=== PATIENT | female | born 1970 | race Caucasian/White ===

== ENCOUNTER → 2021-10-08 15:31 | Outpatient (BNVA) | payer MEDICAID, SELFPAY | PROVIDERS: Visit Provider Nurse Practitioner Family | DX: I87.2 Venous insufficiency (chronic) (peripheral) (principal); L97.322 Non-pressure chronic ulcer of left ankle with fat layer exposed; I96 Gangrene, not elsewhere classified | CPT/HCPCS: 29581 ==

== ENCOUNTER → 2021-10-15 14:27 | Outpatient (BNVA) | payer MEDICAID, SELFPAY | PROVIDERS: Visit Provider Nurse Practitioner Family | DX: I87.2 Venous insufficiency (chronic) (peripheral) (principal); L97.322 Non-pressure chronic ulcer of left ankle with fat layer exposed; I96 Gangrene, not elsewhere classified | CPT/HCPCS: 11042 ==

== ENCOUNTER → 2021-10-23 14:20 | Outpatient (BNVA) | payer MEDICAID, SELFPAY | PROVIDERS: Visit Provider Surgery | DX: I87.2 Venous insufficiency (chronic) (peripheral) (principal); L97.322 Non-pressure chronic ulcer of left ankle with fat layer exposed | CPT/HCPCS: 11042 ==

== ENCOUNTER → 2021-10-27 14:56 | Outpatient (BNVA) | payer MEDICAID, SELFPAY | PROVIDERS: Visit Provider Emergency Medicine | DX: I87.2 Venous insufficiency (chronic) (peripheral) (principal); L97.321 Non-pressure chronic ulcer of left ankle limited to breakdown of skin; L97.311 Non-pressure chronic ulcer of right ankle limited to breakdown of skin; S90.521D Blister (nonthermal), right ankle, subsequent encounter; X58.XXXD Exposure to other specified factors, subsequent encounter | CPT/HCPCS: 11042 ==

== ENCOUNTER → 2021-10-29 13:00 | Outpatient (BNVA) | payer MEDICAID, SELFPAY | PROVIDERS: Visit Provider Emergency Medicine | DX: I87.2 Venous insufficiency (chronic) (peripheral) (principal); L97.322 Non-pressure chronic ulcer of left ankle with fat layer exposed; I96 Gangrene, not elsewhere classified | CPT/HCPCS: 11042 ==

== ENCOUNTER → 2021-11-05 09:57 | Outpatient (BNVA) | payer MEDICAID, SELFPAY | PROVIDERS: Visit Provider Nurse Practitioner Family | DX: I87.2 Venous insufficiency (chronic) (peripheral) (principal); L97.321 Non-pressure chronic ulcer of left ankle limited to breakdown of skin | CPT/HCPCS: 11042 ==

== ENCOUNTER → 2021-11-09 15:46 | Outpatient (BNVA) | payer MEDICAID, SELFPAY | PROVIDERS: Visit Provider Thoracic Surgery (Cardiothoracic Vascular Surgery) | DX: L97.822 Non-pressure chronic ulcer of other part of left lower leg with fat layer exposed (principal); I87.2 Venous insufficiency (chronic) (peripheral) | CPT/HCPCS: 29581 ==

== ENCOUNTER → 2021-11-12 09:58 | Outpatient (BNVA) | payer MEDICAID, SELFPAY | PROVIDERS: Visit Provider Nurse Practitioner Family | DX: I96 Gangrene, not elsewhere classified (principal); I87.2 Venous insufficiency (chronic) (peripheral); L97.322 Non-pressure chronic ulcer of left ankle with fat layer exposed | CPT/HCPCS: 11042 ==

== ENCOUNTER → 2021-11-26 10:24 | Outpatient (BNVA) | payer BC, SELFPAY | PROVIDERS: Visit Provider Nurse Practitioner Family | DX: Z01.89 Encounter for other specified special examinations (principal) | CPT/HCPCS: 87070; 87077; 87176; 87186; 87205 ==

== ENCOUNTER → 2021-11-30 14:52 | Outpatient (BNVA) | payer BC, SELFPAY | PROVIDERS: Visit Provider Thoracic Surgery (Cardiothoracic Vascular Surgery) | DX: I87.2 Venous insufficiency (chronic) (peripheral) (principal); L97.822 Non-pressure chronic ulcer of other part of left lower leg with fat layer exposed | CPT/HCPCS: 29581; A6251; A6252 ==

== ENCOUNTER → 2021-12-03 10:10 | Outpatient (BNVA) | payer BC, SELFPAY | PROVIDERS: Visit Provider Nurse Practitioner Family | DX: I87.2 Venous insufficiency (chronic) (peripheral) (principal); L97.322 Non-pressure chronic ulcer of left ankle with fat layer exposed; I96 Gangrene, not elsewhere classified | CPT/HCPCS: 11042; A6252 ==

== ENCOUNTER → 2021-12-07 14:11 | Outpatient (BNVA) | payer BC, SELFPAY | PROVIDERS: Visit Provider Thoracic Surgery (Cardiothoracic Vascular Surgery) | DX: I87.2 Venous insufficiency (chronic) (peripheral) (principal); L97.822 Non-pressure chronic ulcer of other part of left lower leg with fat layer exposed | CPT/HCPCS: 29581; A6212; A6252 ==

== ENCOUNTER → 2021-12-10 10:29 | Outpatient (BNVA) | payer BC, SELFPAY | PROVIDERS: Visit Provider Nurse Practitioner Family | DX: I87.2 Venous insufficiency (chronic) (peripheral) (principal); L97.322 Non-pressure chronic ulcer of left ankle with fat layer exposed | CPT/HCPCS: 11042; A6252 ==

== ENCOUNTER → 2021-12-14 14:15 | Outpatient (BNVA) | payer BC, SELFPAY | PROVIDERS: Visit Provider Thoracic Surgery (Cardiothoracic Vascular Surgery) | DX: I87.2 Venous insufficiency (chronic) (peripheral) (principal); L97.822 Non-pressure chronic ulcer of other part of left lower leg with fat layer exposed | CPT/HCPCS: 29581; 99212; A6252 ==

== ENCOUNTER → 2021-12-17 13:02 | Outpatient (BNVA) | payer BC, SELFPAY | PROVIDERS: Visit Provider Nurse Practitioner Family | DX: I87.2 Venous insufficiency (chronic) (peripheral) (principal); L97.322 Non-pressure chronic ulcer of left ankle with fat layer exposed; I96 Gangrene, not elsewhere classified | CPT/HCPCS: 11042; A6252 ==

== ENCOUNTER → 2021-12-21 15:05 | Outpatient (BNVA) | payer BC, SELFPAY | PROVIDERS: Visit Provider Thoracic Surgery (Cardiothoracic Vascular Surgery) | DX: I87.2 Venous insufficiency (chronic) (peripheral) (principal); L97.822 Non-pressure chronic ulcer of other part of left lower leg with fat layer exposed | CPT/HCPCS: 29581; A6252 ==

== ENCOUNTER 2022-01-05 12:45 | Outpatient (CLI) | payer BC, MEDICAID, SELFPAY ==
--- NOTE | 2022-01-05 12:30 | USCV_ITS ---
Peggy Dela Cruz Age: 51 Gender: F : 1970 Exam Date: 01/05/2022 13:16 Ordering Phys: Mini Lay Technologist: Suleman Manjarrez Exam Location: [facility] [place] Indication: HISTORY: PROCEDURES: Left duplex Venous Insufficiency study of the Deep and Superficial systems was carried out according to normal protocol with the patient in supine positon for deep system and dependent position for the superficial system. FINDINGS: All deep veins demonstrated compressibility without evidence of intraluminal thrombus or increased echogenicity. The left gsaph has been previously sugicaly removed. There is also significant reflux in the remenant great saph from the sfj to the mid level. CONCLUSIONS The venous duplex examination was performed on the left side 1. No significant or deep vein thrombosis were noted. No significant reflux in the deep veins. 2. There seems to be an accessory greater saphenous vein with significant reflux at the saphenofemoral junction, distal to the saphenofemoral junction, proximal and mid greater saphenous vein segments. These venous segments were found to be greater than 1 cm deep from the surface. They were measuring anywhere from 0.44 to 0.86 cm in diameter. 3. No significant reflux were noted in the small saphenous vein segments. Dr Brent Thomas MD [facility] (Electronically Signed) Final Date: 11 January 2022 09:59 S
== END 2022-01-05 12:46 | disposition home or self-care (01) ==
LOC: RAD 12:46
PROVIDERS: Visit Provider Nurse Practitioner Family
DX: I87.2 Venous insufficiency (chronic) (peripheral) (principal); L97.322 Non-pressure chronic ulcer of left ankle with fat layer exposed
CPT/HCPCS: 93971

== ENCOUNTER → 2022-07-27 14:49 | Outpatient (BNVA) | payer BC, MEDICAID, SELFPAY | PROVIDERS: Visit Provider Nurse Practitioner Family | DX: I87.2 Venous insufficiency (chronic) (peripheral) (principal); L97.322 Non-pressure chronic ulcer of left ankle with fat layer exposed; L89.892 Pressure ulcer of other site, stage 2 | CPT/HCPCS: 87070; 87176; 87205 ==

== ENCOUNTER → 2022-12-16 11:22 | Outpatient (BNVA) | payer BC, MEDICAID, SELFPAY | PROVIDERS: Visit Provider Nurse Practitioner Family | DX: L98.9 Disorder of the skin and subcutaneous tissue, unspecified (principal) | CPT/HCPCS: 87070; 87075; 87077; 87186; 87205 ==

== ENCOUNTER 2023-01-06 12:48 | Outpatient (CLI) | payer BC, MEDICAID, SELFPAY ==
--- NOTE | 2023-01-06 13:15 | USCV_ITS ---
Peggy Dela Cruz Age: 52 Gender: F : 1970 Exam Date: 01/06/2023 13:02 Ordering Phys: Lizette Dutton NP Technologist: GERARDO Exam Location: [facility] – [place] Indication: LE Swelling HISTORY: Lower extremity swelling. PROCEDURES: Venous duplex imaging was performed in only the left lower extremity. The following venous structures were evaluated: common femoral vein, profunda vein, proximal portion of the greater saphenous vein, superficial femoral vein, and the popliteal vein. In addition, the posterior tibial and peroneal trunk were evaluated. Serial compression, augmentation maneuvers, and spectral Doppler flow evaluation were performed. FINDINGS: Normal 2-D Doppler and augmentation and compressibility throughout the lower extremity venous structures. Additional imaging through the proximal calf veins also reveals no thrombus. Limited evaluation of the greater saphenous vein is patent with no thrombus. CONCLUSIONS No DVT left lower extremity. Dr. Blanca Jason DO (Electronically Signed) Final Date: 06 January 2023 13:52 S
== END 2023-01-06 12:49 | disposition home or self-care (01) ==
PROVIDERS: Visit Provider Nurse Practitioner Family
DX: M79.605 Pain in left leg (principal); M79.89 Other specified soft tissue disorders
CPT/HCPCS: 93971

== ENCOUNTER 2023-02-08 13:33 | Outpatient (CLI) | payer BC, MEDICAID, SELFPAY ==
--- NOTE | 2023-02-08 13:30 | USCV_ITS ---
Peggy Dela Cruz Age: 52 Gender: F : 1970 Exam Date: 02/08/2023 13:53 Ordering Phys: Lizette Dutton NP Technologist: Exam Location: [facility] – [place] Indication: HISTORY: PROCEDURES: Bilateral duplex Venous Insufficiency study of the Deep and Superficial systems was carried out according to normal protocol with the patient in supine positon for deep system and dependent position for the superficial system. FINDINGS: All deep veins demonstrated compressibility without evidence of intraluminal thrombus or increased echogenicity. Spectral analysis of Doppler signals demonstrates normal response to compression maneuvers indicating patency without obstruction. Reflux determinations were made with the patient in the dependent position, the weight being on the contralateral leg. There is multi level reflux on the leg in the deep and superfical veins. The lt leg has had most of the lt great saph removed exept for extream proximal area there is and enlarged lymph node in the lt groin, measuring 3.62 cm The reflux time in the right femoral vein and the popliteal veins 2.02 and 1.5 cm respectively. On the left side, the popliteal vein reflux time was 1.4 seconds. The right greater saphenous vein was found to have significant reflux at the saphenofemoral junction, distal to the saphenofemoral junction, proximal and mid greater saphenous vein segments. The venous segments were measuring 0.89, 0.79, 0.68 and 0.59 cm respectively at these levels. The decimal surface where 2.17, 1.69, 1.34, and 0.86 cm respectively from the surface. On the left side, Significant venous reflux was noted at the saphenofemoral junction. The greater saphenous vein was found to be removed for. No significant venous reflux were noted in the small saphenous veins bilaterally CONCLUSIONS 1. No evidence of DVT on either side 2. Significant deep vein reflux involving the femoral and popliteal vein on the right side and popliteal vein on the left side 3. Significant venous reflux of greater than 500 ms were noted at the saphenofemoral junction, distal to the saphenofemoral , Proximal and mid segment of the greater saphenous veins. These segments were greater than 1 cm deep from the surface except the mid greater saphenous vein. The venous dimensions and the reflux times are as mentioned above. 4. Significant venous reflux was noted to the saphenofemoral junction on the left side. The greater saphenous vein was found to be removed. 5. No significant venous reflux is noted in the mall saphenous veins on either side Dr Brent Thomas MD [facility] (Electronically Signed) Final Date: 08 February 2023 17:21 S
== END 2023-02-08 13:34 | disposition home or self-care (01) ==
PROVIDERS: PCP Nurse Practitioner Family; Visit Provider Nurse Practitioner Family
DX: S81.802A Unspecified open wound, left lower leg, initial encounter (principal); X58.XXXA Exposure to other specified factors, initial encounter; I87.2 Venous insufficiency (chronic) (peripheral)
CPT/HCPCS: 93970

== ENCOUNTER 2023-02-10 14:42 | Outpatient (CLI) | payer BC, MEDICAID, SELFPAY ==
--- NOTE | 2023-02-10 14:30 | USR_ITS ---
PROCEDURE INFORMATION: Exam: US Duplex Bilateral Lower Extremity Arteries Exam date and time: 02/10/2023 2:54 PM Age: 52 years old Clinical indication: Other: Nonhealing sores; Additional info: S81.046z - unspecified open wound, left lower leg, initia. . . TECHNIQUE: Imaging protocol: Real-time ultrasound scan of the arteries of the bilateral lower extremities with 2-D rodriguez scale, color Doppler flow and spectral waveform analysis. Images documented and saved. COMPARISON: No relevant prior studies available. FINDINGS: Right iliac/common femoral artery: No occlusion or significant stenosis. Normal waveform. Right superficial femoral artery: No occlusion or significant stenosis. Normal waveform. Right popliteal artery: No occlusion or significant stenosis. Normal waveform. Right calf/foot arteries: No occlusion or significant stenosis in the visualized arteries. Normal waveforms. Dorsalis pedis artery is patent. Left iliac/common femoral artery: No occlusion or significant stenosis. Normal waveform. Left superficial femoral artery: No occlusion or significant stenosis. Normal waveform. Left popliteal artery: No occlusion or significant stenosis. Normal waveform. Left calf/foot arteries: No occlusion or significant stenosis in the visualized arteries. Normal waveforms. Dorsalis pedis artery is patent. PEYMAN is 1.1 on the right and 1 on the left. US/[place] [id number] IMPRESSION: No stenosis or occlusion.
== END 2023-02-10 14:43 | disposition home or self-care (01) ==
PROVIDERS: PCP Nurse Practitioner Family; Visit Provider Nurse Practitioner Family
DX: S81.802A Unspecified open wound, left lower leg, initial encounter (principal); X58.XXXA Exposure to other specified factors, initial encounter
CPT/HCPCS: 93925

== ENCOUNTER 2024-01-18 12:00 | Outpatient (CLI) | payer BC, MEDICAID, SELFPAY ==
--- NOTE | 2024-01-18 12:00 | USCV_ITS ---
Peggy Dela Cruz Age: 53 Gender: F : 1970 Exam Date: 01/18/2024 12:26 Ordering Phys: Ousmane Mckeon MD (Andy) ([email or web address]) Technologist: CT [place] [facility] [place]: HISTORY: PROCEDURES: FINDINGS: The deep and the superficial veins are found to be easily compressible. On the right side, the femoral vein and the popliteal venous segments were found to have significant insufficiency with the reflux time of 2.34 and 1.92 respectively. On the left side also there was significant reflux in the femoral and popliteal veins with reflux time of 2.11 and 2.52 seconds respectively. Significant reflux were noted at the level of the mid, distal and below-knee segments of the greater saphenous vein on the right side and distal greater saphenous vein segment of the left side. The reflux time where 1.5, 1.7 and 3.0 seconds, respectively on the right and 1.5 seconds on the left. All these venous segments were found to be very superficial except at the mid segment of the greater saphenous vein on the right side which was at a depth of 1.3 cm. These venous segments were measuring anywhere from 0.4 to 0.6 cm on the right side and 0.3 cm on the left side CONCLUSIONS 1. No evidence of DVT in the above-mentioned identifiable weight 2. Significant venous reflux were noted in the deep veins bilaterally 3. Significant venous reflux of greater than 500 ms were noted on the right side at the level of the mid, distal and below-knee segments of the greater saphenous vein. But except the mid greater saphenous vein, all other venous segments were very superficial. 4. Significant venous reflux of greater than 500 ms were noted at the level of the below-knee segment of the greater saphenous vein on the left side. But the venous segment was very superficial, 0.4 cm deep from the surface Dr Brent Thomas MD [facility] (Electronically Signed) Final Date: 20 January 2024 19:08 S
== END 2024-01-18 12:05 | disposition home or self-care (01) ==
PROVIDERS: PCP Family Medicine; Visit Provider Thoracic Surgery (Cardiothoracic Vascular Surgery)
DX: I87.2 Venous insufficiency (chronic) (peripheral) (principal); I83.019 Varicose veins of right lower extremity with ulcer of unspecified site; I83.029 Varicose veins of left lower extremity with ulcer of unspecified site; L97.929 Non-pressure chronic ulcer of unspecified part of left lower leg with unspecified severity; L97.919 Non-pressure chronic ulcer of unspecified part of right lower leg with unspecified severity
CPT/HCPCS: 93970

== ENCOUNTER 2025-04-16 09:31 | Outpatient (CLI) | payer BC, MEDICAID, SELFPAY ==
--- NOTE | 2025-04-16 09:30 | USR_ITS ---
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 ; Additional info: Non-healing wounds to bilateral extremities TECHNIQUE: Imaging protocol: Real-time duplex ultrasound of the bilateral extremities with 2-D rodriguez scale, color Doppler flow and spectral waveform analysis including responses to compression and other maneuvers (when performed) with image documentation. Complete exam focused on the lower extremity veins. COMPARISON: No relevant prior studies available. FINDINGS: Right deep veins: Unremarkable. The common femoral, femoral, proximal profunda femoral and popliteal veins are patent without thrombus. Normal Doppler waveforms. Normal compressibility and/or augmentation response. Venous reflux is seen in the right popliteal and common femoral veins. Left deep veins: Unremarkable. The common femoral, femoral, proximal profunda femoral and popliteal veins are patent without thrombus. Normal Doppler waveforms. Normal compressibility and/or augmentation response. Venous reflux is seen in the left popliteal, superficial femoral and common femoral veins. Superficial veins: There are findings equivocal for a nonocclusive thrombus in the right greater saphenous vein below the femoral junction. Reflux is seen in the proximal and mid right greater saphenous vein. Left greater saphenous vein proximal to the femoral junction is surgically absent. Soft tissues: Unremarkable. US/CV uri dup insuros [facility] [id number] IMPRESSION: No evidence of deep vein thrombosis. Minor findings including reflux and possible partial nonocclusive thrombus of the right greater saphenous vein noted above.
== END 2025-04-16 09:32 | disposition home or self-care (01) ==
LOC: RAD 09:37
PROVIDERS: PCP Family Medicine; Visit Provider Thoracic Surgery (Cardiothoracic Vascular Surgery)
DX: L97.929 Non-pressure chronic ulcer of unspecified part of left lower leg with unspecified severity (principal); L97.919 Non-pressure chronic ulcer of unspecified part of right lower leg with unspecified severity; R93.89 Abnormal findings on diagnostic imaging of other specified body structures; Z90.89 Acquired absence of other organs
CPT/HCPCS: 93970